=== PATIENT | female | born 1970 | race Caucasian/White ===

== ENCOUNTER 2024-04-30 05:51 | Day surgery (SDC) | payer BC ==
[2024-04-30] MEDS ORDERED: Sodium Chloride 0.9% 500 ML IV SCH (06:00)
[2024-04-30] MEDS ORDERED: Midazolam 1 MG/ML 2 ML SDV ONE (06:12)
[2024-04-30] MEDS ORDERED: Midazolam 1 MG/ML 2 ML SDV IV ONE (06:12)
[2024-04-30] MEDS ORDERED: fentaNYL 100 MCG/2 ML SDV ONE (06:12)
[2024-04-30] MEDS ORDERED: fentaNYL 100 MCG/2 ML SDV IV ONE (06:12)
[2024-04-30] MEDS: Dextrose 5%-0.45% NaCl 1,000 ML IV SCH (06:16)
[2024-04-30] MEDS: fentaNYL 100 MCG/2 ML SDV IV ONE ×4 (07:01→07:16)
[2024-04-30] MEDS: Midazolam 1 MG/ML 2 ML SDV IV ONE ×6 (07:02→07:11)
== END 2024-04-30 09:12 | disposition home or self-care (01) ==
LOC: DL.ENDO 05:51
PROVIDERS: ATTEND Internal Medicine Gastroenterology
DX: Z12.11 Encounter for screening for malignant neoplasm of colon (principal); K57.30 Diverticulosis of large intestine without perforation or abscess without bleeding; E83.52 Hypercalcemia; F41.9 Anxiety disorder, unspecified
CPT/HCPCS: J2250; J3010; J7799